=== PATIENT | male | born 1945 | race Caucasian/White ===

== ENCOUNTER 2020-04-12 19:43 | Emergency (ER) | payer OTHER, SELFPAY ==
[2020-04-12 20:36] VITALS: BP 141/77; PULSE 102; RESP 14; TEMP 36.7; O2SAT 95; BMI 29.0
--- NOTE | 2020-04-12 20:37 | USCV_ITS ---
WESTON HENRY Age: 75 Gender: M : 1945 Exam Date: 04/12/2020 21:17 Ordering Phys: Tommy Hannah Technologist: Naida Lockhart Exam Location: [facility] – [place]_ Indication: LT LEG PAIN AND REDNESS HISTORY: Lower extremity edema. PROCEDURES: Venous duplex imaging was performed in only the left lower extremity. The following venous structures were evaluated: common femoral vein, profunda vein, proximal portion of the greater saphenous vein, superficial femoral vein, and the popliteal vein. In addition, the posterior tibial and peroneal trunk were evaluated. ble with spontaneous blood flow. No evidence of insufficiency or thrombus noted. FINDINGS: Normal 2-D Doppler and augmentation and compressibility throughout the lower extremity venous structures. Additional imaging through the proximal calf veins also reveals no thrombus. Limited evaluation of the greater saphenous vein is patent with no thrombus. CONCLUSIONS No DVT left lower extremity. Dr. Lin Jimenez DO (Electronically Signed) Final Date: 13 April 2020 08:06 S
--- NOTE | 2020-04-12 22:47 | W.ED.EXTPRO ---
HPI - Extremity Problem General: Chief complaint: Extremity Problem,Nontraumatic Stated complaint: L FOOT/LEG PAIN Time Seen by Provider: 04/12/20 22:41 History of Present Illness: HPI Narrative: Patient with left lower foot pain and also some on his right foot. This has been longstanding going on for weeks. Patient's just 1 week ago. Patient is a [employer] 1 pack/day smoker. Has had swelling in his feet for quite a while. Just worse this past week. Has a history of COPD and PTSD, patient moved down here a week ago and now living with daughter MD Complaint: extremity pain and extremity swelling Onset (ago): month(s) Pain Consistency: constant Location: left and lower extremity Severity scale (1-10): 8 Quality: burning, stabbing and aching Radiation: none Relieving factors: other (Feels better when he hangs his legs outside the bed) Exacerbating factors: range of motion and weight bearing Associated symptoms: Reports no associated symptoms; Deny chest pain, fever(s) or rash Review of Systems Const: Denies: fever(s), chills or body aches Eyes: Denies: change in vision or blurry vision ENMT: Denies: throat pain or nasal congestion Card: Denies: chest pain or dyspnea on exertion Resp: Reports: non-productive cough (Chronic); Denies: dyspnea or productive cough GI: Denies: abdominal pain, nausea or vomiting : Denies: difficulty urinating Musc: Reports: extremity pain (Left foot and some of the right foot) Skin/Breast: Denies: rash Neuro: Denies: headache(s) Psych: Denies: anxiety or depression Tigre/Lymph: Denies: easy bruising Physical Exam Const: COMMON NORMALS: no acute distress, average body habitus and patient oriented x3 HENMT: COMMON NORMALS: normocephalic HEAD & SCALP: normal to inspection and normocephalic FACE & SINUS: normal facial exam Eye: COMMON NORMALS: conjunctivae normal GENERAL EYE: appearance normal, both eyes and all related structures CONJUNCTIVA: Yes conjunctivae normal Neck/C-Spine: COMMON NORMALS: no JVD Chest: COMMONS NORMALS: normal inspection of the chest Resp: COMMON NORMALS: normal respiratory effort AUSCULTATION: diminished lung sounds Cardio: COMMON NORMALS: no JVD, regular rate and regular rhythm RATE: regular rate RHYTHM: regular rhythm GI: COMMON NORMALS: Normal to inspection, nondistended, normoactive bowel sounds present Extremity: NARRATIVE EXTREMITY EXAM: Left foot slightly cool decreased cap refill is very red ultrasounds performed which showed decreased PRADEEP I think 20% is what pharmacy technician inpatient said does not have a DVT but does have decreased arterial flow. Right lower extremity has swelling skin breakdown decreased pulses also. Neuro: COMMON NORMALS: patient oriented x3 Course Vital Signs: Vital signs: Vital Signs Temperature 98.1 F 04/12/20 20:36 Pulse Rate 86 04/13/20 00:36 Respiratory Rate 20 H 04/13/20 00:36 Blood Pressure 146/92 04/13/20 00:36 Pulse Oximetry 94 04/13/20 00:36 MDM - Extremity (Nontraumatic) MDM Narrative: Medical decision making narrative: Patient with obvious peripheral artery disease as per ultrasound. Patient is to establish with Dr. Cueva in cardiology to seek out treatment. Diagnosis differential would include cellulitis blockage peripheral artery disease. Lab Data: Labs: Lab Results 04/12/20 04/12/20 Range/Units 23:05 23:05 WBC 10.3 H (4.0-10.0) 10^3/ uL RBC 4.87 (4.1-5.3) 10^6/u L Hgb 16.2 (11.7-16.6) g/dL Hct 48.4 (42.0-52.0) % MCV 99.4 H (80-94) fL MCH 33.3 (28.0-34.0) pg MCHC 33.5 (30.0-36.0) g/dL RDW 15.4 H (12.1-15.1) % Plt Count 261 (130-400) 10^3/c mm MPV 10.7 H (7.4-10.4) fL Neut % (Auto) 73.7 % Lymph % (Auto) 18.0 % Mccreary % (Auto) 6.0 % Eos % (Auto) 1.2 % Baso % (Auto) 0.7 % Neut # (Auto) 7.55 (1.8-7.7) 10^3/u L Lymph # (Auto) 1.9 (0.8-4.8) 10^3/u L Mccreary # (Auto) 0.6 (0.2-0.9) 10^3/u L Eos # (Auto) 0.1 (0.0-0.8) 10^3/u L Baso # (Auto) 0.1 (0.0-0.1) 10^3/u L Nucleated RBC % (a uto) 0 % Nucleated RBCs # 0.0 /100WBC Sodium 138 (136-145) mmol/L Potassium 4.1 (3.5-5.1) mmol/L Chloride 99 (98-107) mmol/L Carbon Dioxide 28 (22-29) mmol/L Anion Gap 15.1 (5-19) BUN 13 (8-23) mg/dL Creatinine 0.7 (0.7-1.2) mg/dL GFR Calculation Not Reportable Glucose 100 (65-115) mg/dL Calculated Osmolal ity 286 (285-295) mOsm/k g Calcium 9.2 (8.5-10.5) mg/dL Total Bilirubin 0.4 (0.15-1.2) mg/dL AST 13 (0-40) U/L ALT 8 (0-41) U/L Alkaline Phosphata se 75 (40-130) IU/L C-Reactive Protein 26.4 H (0.0-4.9) mg/L NT-Pro-B Natriuret Pep 1221 H (0-125) pg/mL Total Protein 7.0 (6.6-8.7) g/dL Albumin 4.0 (3.5-5.2) g/dL Globulin 3.0 (1.3-4.6) g/dL Discharge Plan Discharge Patient Disposition: Home Clinical Impression: PAD (peripheral artery disease) Condition: Stable Prescriptions: New tramadol 50 mg tablet 50 mg PO QID PRN (Reason: pain) Qty: 20 RF: 0 cilostazol 100 mg tablet 100 mg PO BID Qty: 14 RF: 0 Discharge Orders: Discharge ED (Routine); Ordered 04/13/20 Ordered By: Tommy Hannah Discharge Diet: Usual diet Discharge Activity: Increase activity as tolerated Patient Instructions: Peripheral Artery Disease (ED) Activity Restrictions/Additional Instructions: Follow-up with medical provider as directed. Take medications as prescribed. Return to the ER or your medical provider if condition worsens. Please read and understand discharge instructions. If any questions ask please. Have his primary care provider this coming week. Coding Level of Care Code ED [facility] Clerk for Chg Fwd Exam Comprehensive
--- NOTE | 2020-04-12 23:04 | XR_ITS ---
WS: [id number] PORTABLE CHEST HISTORY: copd COMPARISON: None available. Very slight elevation of the LEFT hemidiaphragm. No pneumonia. Normal vasculature. Mild chronic emphy sema. No pleural effusion or pneumothorax. Cardiac size: Normal. Mediastinum/Aorta: Normal mediastinum. Degenerative changes at the AC joints and glenohumeral joints. XR/XR chest 1V portable [id number] IMPRESSION: Mild chronic emphysema. No pneumonia.
[2020-04-12] MEDS: HYDROcodone-acetaminophen 7.5-325 mg Tablet 1 TAB PO (23:15)
[2020-04-12 23:33] LABS: Basophils # 0.1 10^3/uL (0.0-0.1); Basophils % 0.7 %; Eosinophils # 0.1 10^3/uL (0.0-0.8); Eosinophils % 1.2 %; Hematocrit 48.4 % (42.0-52.0); Hemoglobin 16.2 g/dL (11.7-16.6); Lymphocytes # 1.9 10^3/uL (0.8-4.8); Mean Corpuscular HGB Conc 33.5 g/dL (30.0-36.0); Mean Corpuscular Hemoglobin 33.3 pg (28.0-34.0); Mean Corpuscular Volume 99.4 fL (80-94); Mean Platelet Volume 10.7 fL (7.4-10.4); Monocytes # 0.6 10^3/uL (0.2-0.9); Neutrophils # 7.55 10^3/uL (1.8-7.7); Neutrophils % 73.7 %; Nucleated Red Blood Cells % 0 %; Platelet Count 261 10^3/cmm (130-400); Red Blood Count 4.87 10^6/uL (4.1-5.3); Red Cell Distribution Width 15.4 % (12.1-15.1); White Blood Count 10.3 10^3/uL (4.0-10.0)
[2020-04-12 23:45] LABS: Alanine Aminotransferase 8 U/L (0-41); Alkaline Phosphatase 75 IU/L (40-130); Anion Gap 15.1 (5-19); Aspartate Amino Transferase 13 U/L (0-40); Blood Urea Nitrogen 13 mg/dL (8-23); C Reactive Protein 26.4 mg/L (0.0-4.9); Calcium 9.2 mg/dL (8.5-10.5); Carbon Dioxide 28 mmol/L (22-29); Chloride 99 mmol/L (98-107); Creatinine Clr Calc Pharmacy 82.5156; Glucose 100 mg/dL (65-115); NT Pro B Type Natriuretic Pept 1221 pg/mL (0-125); Osmolality Calculated 286 mOsm/kg (285-295); Potassium 4.1 mmol/L (3.5-5.1); Sodium 138 mmol/L (136-145); Total Bilirubin 0.4 mg/dL (0.15-1.2)
[2020-04-13 00:16] VITALS: BP 146/92; PULSE 86; RESP 20; O2SAT 94
[2020-04-13 00:36] VITALS: BP 146/92; PULSE 86; RESP 20; O2SAT 94
== END 2020-04-13 00:37 | disposition home or self-care (01) ==
PROVIDERS: Emergency Provider Nurse Practitioner Family
DX: I73.9 Peripheral vascular disease, unspecified (principal)
CPT/HCPCS: 12345; 71045; 80053; 83880; 85025; 86140; 93971; 99281; 99283